=== PATIENT | female | born 1975 | race African-American/Black ===

== ENCOUNTER 2019-10-19 10:32 | Emergency (ER) | payer MEDICAID, OTHER ==
[~2019-10-19] VITALS: Ht 165.1 cm; Wt 120.0 kg
[2019-10-19 10:48] VITALS: BP 126/86
[2019-10-19] MEDS ORDERED: LIDOCAINE HCL 1% 20ML VIAL (Pyxis) INJ INFIL ONE (11:15)
[2019-10-19] MEDS ORDERED: CEFTRIAXONE SODIUM 1 G/VIAL IM ONE (11:15)
== END 2019-10-19 12:11 | disposition home or self-care (01) ==
LOC: ER 10:32
DX: L03.115 Cellulitis of right lower limb (principal); R03.0 Elevated blood-pressure reading, without diagnosis of hypertension
CPT/HCPCS: 96372; 99283; J0696; J3490

== ENCOUNTER 2019-10-24 13:03 | Emergency (ER) | payer MEDICAID ==
[~2019-10-24] VITALS: Ht 165.1 cm; Wt 131.6 kg
[2019-10-24] MEDS ORDERED: KETOROLAC 30MG/ML VIAL IV STA (14:02)
[2019-10-24] MEDS ORDERED: SODIUM CHLORIDE 0.9% 1,000 ML IV ONE (14:02)
[2019-10-24] MEDS ORDERED: CEFTRIAXONE 1 G PREMIX 50 ML IV ONE (14:15)
[2019-10-24 14:21] LABS: BASOPHILS % 0.9 % (0.0-2.0); EOSINOPHILS % 0.5 % (0.0-5.0); HEMATOCRIT. 36.6 % (36.0-48.0); HEMOGLOBIN. 12.2 g/dL (12.0-16.0); LYMPHOCYTES % 35.4 % (20.0-50.0); MEAN CORPUSCULAR VOLUME 87.1 fL (81.0-99.0); MEAN PLATELET VOLUME 10.3 fl (7.4-10.4); MONOCYTES % 7.9 % (2.0-8.0); NEUTROPHILS % 55.3 % (40.0-76.0); PLATELET 301 x1000/uL (130-400); RED CELL DISTRIBUTION WIDTH 14.6 % (11.6-14.6)
[2019-10-24 14:32] LABS: CHLORIDE 107 mEq/L (98-107)
[2019-10-24 16:00] VITALS: BP 145/102
== END 2019-10-24 16:32 | disposition home or self-care (01) ==
LOC: ER 13:03
DX: L03.115 Cellulitis of right lower limb (principal); R03.0 Elevated blood-pressure reading, without diagnosis of hypertension; Z85.9 Personal history of malignant neoplasm, unspecified
CPT/HCPCS: 36415; 80053; 85025; 87040; 93971; 96374; 96375; 99284; J0696; J1885; J7030